=== PATIENT | female | born 1990 | race Caucasian/White ===

== ENCOUNTER 2020-12-29 05:17 | Emergency (ER) | payer OTHER ==
[~2020-12-29] VITALS: Ht 170.2 cm; Wt 55.2 kg
[2020-12-29] MEDS ORDERED: HYDR-2155 PO (05:35)
[2020-12-29] MEDS ORDERED: ONDA4TAB7 PO (05:35)
--- NOTE | 2020-12-29 05:36 | PHYS DOC ---
Adult General HPI HPI Patient is an otherwise healthy 30-year-old female presents with a chief complaint of periumbilical abdominal pain since midnight, 7 out of 10, sharp in nature with associated nonbloody nonbilious nausea and vomiting x2 and a couple episodes of watery diarrhea. States the symptoms are similar to the ones that her family at home has had over the last couple of weeks. States that everybody in the household has had something similar and she was a last 1 to get it. States yesterday she was doing well, was eating and drinking normally and went to bed feeling normal. Denies any recent travel, fevers, chest pain, shortness of breath, dysuria, hematuria or blood in the stool. Denies any alcohol or drug use. (ALBERTO CELESTE MD) Review of Systems Review of Systems Review of systems otherwise unremarkable except for noted in HPI. (ALBERTO CELESTE MD) Current Medications Current Medications Current Medications Medications (Trade) Dose Ordered Sig/Ajay Start Time Stop Time Status Last Admin Dose Admin Fentanyl Citrate (Fentanyl 2ml Vial) 50 mcg 1X ONCE 12/29/20 05:30 12/29/20 05:31 UNV Lactated Ringer's 1,000 ml @ 1,000 mls/hr 1X ONCE 12/29/20 05:30 12/29/20 06:29 UNV Metoclopramide HCl (Reglan Vial) 10 mg 1X ONCE 12/29/20 05:30 12/29/20 05:31 UNV (ALBERTO CELESTE MD) Physical Exam Physical Exam Constitutional: Well developed, well nourished, no acute distress, non-toxic appearance. [] HENT: Normocephalic, atraumatic, oropharynx dry, no oral exudates, Eyes:conjunctiva normal, no discharge. [] Neck: Normal range of motion, Cardiovascular:Heart rate regular rhythm, no murmur [] Lungs & Thorax: Bilateral breath sounds clear to auscultation [] Abdomen: Bowel sounds normal, soft, periumbilical tenderness, no masses, no pulsatile masses. [] Skin: Warm, dry, no erythema, no rash. [] Back: No tenderness, no CVA tenderness. [] Extremities: No tenderness, no cyanosis, no clubbing, ROM intact, no edema. [] Neurologic: Alert and oriented X 3, normal motor function, normal sensory function, no focal deficits noted. [] Psychologic: Affect normal, judgement normal, mood normal. [] (ALBERTO CELESTE MD) EKG EKG [] (ALBERTO CELESTE MD) Radiology/Procedures Radiology/Procedures []Abdomen findings: Lung bases unremarkable. Bones are unremarkable. Several round subcentimeter hypodense lesions of the liver are too small to characterize due to volume averaging, statistically most likely small cysts. There is a separate 1.2 cm fluid density cyst of the left hepatic lobe segment 3. Gallbladder, pancreas, spleen, adrenal glands and kidneys are unremarkable. No bowel obstruction. Appendix is normal has a diameter of 6 mm no surrounding edema. There is luminal collapse and wall thickening of the transverse colon through the descending and rectosigmoid colon and there may be mild surrounding pericolonic edema. There are also some loops of jejunum at the upper abdomen which demonstrates fold thickening. Findings likely represent enterocolitis. No abdominal fluid. No adenopathy. Pelvis findings: Small bilateral ovarian hypodensities typical follicles. Uterus, bladder, rectum and bones are unremarkable. IMPRESSION: 1. Enterocolitis with mild inflammatory wall thickening of segments of the jejunum and colon. No bowel obstruction. 2. Appendix is negative. 3. Incidental findings as described above. Electronically signed by: Luis E Contreras MD (12/29/2020 6:11 AM) [id number] (ALBERTO CELESTE MD) Heart Score Risk Factors: Risk Factors: DM, Current or recent (<one month) smoker, HTN, HLP, family history of CAD, obesity. Risk Scores: Risk Factors: DM, Current or recent (<one month) smoker, HTN, HLP, family history of CAD, obesity. (ALBERTO CELESTE MD) Course & Med Decision Making Course & Med Decision Making Patient is a 30-year-old female who presents with abdominal pain with associated nausea vomiting and diarrhea Vital signs not concerning. Physical exam noted above. Patient placed on the monitor with IV access established. Started on IV fluid resuscitation. Given Reglan for nausea as patient had Zofran in route and still had nausea in the ED. Given fentanyl for pain. Labs and CT pending. Patient care transferred to day team. [] (ALBERTO CELESTE MD) Course & Med Decision Making Accepted care at shift change accepted care at shift change. Pending labs. Patient's pain and vomiting controlled. Discussed prescriptions and plan. Patient ready to go home. (ALEJANDRO DE LA GARZA MD) Dragon Disclaimer Dragon Disclaimer This electronic medical record was generated, in whole or in part, using a voice recognition dictation system. (ALBERTO CELESTE MD) Departure Departure: Impression: Primary Impression: Abdominal pain Additional Impressions: Nausea & vomiting Diarrhea Disposition: 01 HOME SELF CARE/HOMELESS Condition: STABLE Patient Instructions: Abdominal Pain (Nonspecific), Diarrhea, Nausea and Vomiting Additional Instructions: Please read all of the attached information. Over the next couple of days please eat a light clear diet with nothing heavy and make sure to drink plenty of fluids. Please take your nausea medicine as scheduled over the next few days to allow proper oral intake of nutrition and fluid. Please call your primary care physician first thing Thursday morning to discuss your ED visit and need for any follow-up visits. Please come back to the ED with any new or concerning symptoms. Scripts Hydrocodone Bit/Acetaminophen (HYDROCODONE-APAP 5-325 ) 1 Each Tablet 1 TAB PO TID PRN PRN for PAIN for 3 Days, #9 TAB 0 Refills Prov: ALBERTO CELESTE MD 12/29/20 Ondansetron Hcl (ZOFRAN) 4 Mg Tablet 1 TAB PO PRN Q6HRS PRN for NAUSEA for 3 Days, #12 TAB Prov: ALBERTO CELESTE MD 12/29/20 Problem Qualifiers ALBERTO CELESTE MD Dec 29, 2020 05:36 ALEJANDRO DE LA GARZA MD Dec 29, 2020 07:03
[2020-12-29] MEDS ORDERED: METOCLOPRAMIDE HCL 10 MG/2 ML VIAL. ONE (05:37)
[2020-12-29] MEDS ORDERED: METOCLOPRAMIDE HCL 10 MG/2 ML VIAL. IVP ONE (05:45)
[2020-12-29] MEDS ORDERED: IV RINGERS SOLUTION,LACTATED 1,000 ML IV ONE (05:45)
[2020-12-29] MEDS ORDERED: CONTRAST GIVEN. MC PRN (05:45)
[2020-12-29] MEDS ORDERED: IOHEXOL 300 MG/ML 75 ML VIAL. IV ONE (05:45)
[2020-12-29 06:12] LABS: CALCIUM 8.9 mg/dL (8.5-10.1); CREATININE 0.8 mg/dL (0.6-1.0); GFR 84.2; POTASSIUM 3.7 mmol/L (3.5-5.1)
--- NOTE | 2020-12-29 06:14 | RAD ---
CT abdomen and pelvis with contrast PQRS statement: CT scans at this facility use dose reduction including either automated exposure cont rol, iterative reconstructions, and /or weight based radiation dosing via mA and kV modification when appropriate to reduce radiation dose to as low as reasonably achievable. Contrast: 75 mL Omnipaque 300 intravenous contrast. HISTORY: Nausea, vomiting, severe abdominal pain. Abdomen findings: Lung bases unremarkable. Bones are unremarkable. Several round subcentimeter hypode nse lesions of the liver are too small to characterize due to volume averaging, statistically most li gladis small cysts. There is a separate 1.2 cm fluid density cyst of the left hepatic lobe segment 3. G allbladder, pancreas, spleen, adrenal glands and kidneys are unremarkable. No bowel obstruction. Appe ndix is normal has a diameter of 6 mm no surrounding edema. There is luminal collapse and wall thicke di of the transverse colon through the descending and rectosigmoid colon and there may be mild surr ounding pericolonic edema. There are also some loops of jejunum at the upper abdomen which demonstrat es fold thickening. Findings likely represent enterocolitis. No abdominal fluid. No adenopathy. Pelvis findings: Small bilateral ovarian hypodensities typical follicles. Uterus, bladder, rectum and bones are unremarkable. IMPRESSION: 1. Enterocolitis with mild inflammatory wall thickening of segments of the jejunum and colon. No tomas l obstruction. 2. Appendix is negative. 3. Incidental findings as described above. Electronically signed by: Luis E Contreras MD (12/29/2020 6:11 AM) [id number]
[2020-12-29 06:18] LABS: ALBUMIN 4.1 g/dL (3.4-5.0); TOTAL BILIRUBIN 0.4 mg/dL (0.2-1.0); TOTAL PROTEIN 8.2 g/dL (6.4-8.2)
[2020-12-29 06:21] LABS: BASO % 0 % (0-3); EOS # 0.1 x10^3/uL (0.0-0.7); EOS % 1 % (0-3); HEMOGLOBIN 14.8 g/dL (12.0-15.5); LYMPH # 1.2 x10^3/uL (1.0-4.8); LYMPH % 11 % (24-48); MEAN CORPUSCULAR HEMOGLOBIN 29 pg (25-35); MEAN CORPUSCULAR HGB CONC 33 g/dL (31-37); MEAN CORPUSCULAR VOLUME 87 fL (79-100); MONO # 0.6 x10^3/uL (0.0-1.1); MONO % 6 % (0-9); NEUT # 9.2 x10^3uL (1.8-7.7); NEUT % 82 % (31-73); PLATELET COUNT 220 x10^3/uL (140-400); RED BLOOD COUNT 5.16 x10^6/uL (3.50-5.40); RED CELL DISTRIBUTION WIDTH 12.7 % (11.5-14.5); WHITE BLOOD COUNT 11.2 x10^3/uL (4.0-11.0)
[2020-12-29 06:59] LABS: BACTERIA,URINE 0 /HPF (0-FEW); BILIRUBIN,URINE NEG (NEG); CLARITY,URINE CLEAR; COLOR,URINE YELLOW; GLUCOSE,URINE NEG (NEG); NITRITE,URINE NEG (NEG); RBC,URINE OCC /HPF (0-2); SQUAMOUS EPITHELIAL CELL,UR FEW /LPF; UROBILINOGEN,URINE 0.2 mg/dL (0.2 mg/dL); WBC,URINE OCC /HPF (0-4)
[2020-12-29 07:21] VITALS: BP 126/68
== END 2020-12-29 07:35 | disposition home or self-care (01) ==
LOC: ER 05:17
DX: K52.9 Noninfective gastroenteritis and colitis, unspecified (principal)
CPT/HCPCS: 36415; 74177; 80053; 81001; 83690; 85025; 96361; 96374; 96375; 99285; J2765; J3010; J7120; Q9967